=== PATIENT | female | born 1990 | race Caucasian/White ===

== ENCOUNTER 2017-11-25 05:42 | Inpatient (IN) | payer MEDICAID ==
[2017-11-25] MEDS ORDERED: METHYLERGONOVINE 0.2 MG INJ IM ×2 (06:30→08:00)
[2017-11-25] MEDS ORDERED: CEFAZOLIN 2 GM/50 ML (PMX) 50 ML IV (06:30)
[2017-11-25] MEDS ORDERED: OXYTOCIN 30 UNITS/LR 500 ML IV ×2 (06:30)
[2017-11-25] MEDS ORDERED: CARBOPROST 250 MCG INJ IM ×2 (06:30→08:00)
[2017-11-25] MEDS ORDERED: MISOPROSTOL 200 MCG TAB PR ×2 (06:30→08:00)
[2017-11-25] MEDS: LACTATED RINGER'S 1,000 ML IV ×2 (06:34→18:44)
[2017-11-25 06:47] LABS: ADD MAN DIFF? NO
[2017-11-25 06:56] LABS: BASOPHILS % 0.4 % (0.0-2.0); EOSINOPHILS # 0.1 10^3/ul (0.0-0.5); EOSINOPHILS % 1.4 % (0.0-7.0); HEMATOCRIT 36.8 % (37.0-47.0); HEMOGLOBIN 12.6 g/dl (12.0-16.0); LYMPHOCYTES # 2.4 10^3/ul (0.8-2.9); MEAN CORPUSCULAR HEMOGLOBIN 30.1 pg (29.0-33.0); MEAN CORPUSCULAR HGB CONC 34.2 g/dl (32.0-37.0); MEAN PLATELET VOLUME 11.9 fl (7.4-10.4); MONOCYTE # 0.7 10^3/ul (0.3-0.9); MONOCYTES % 6.4 % (0.0-11.0); NEUTROPHIL # 6.8 10^3/ul (1.6-7.5); NEUTROPHILS % 67.3 % (39.0-77.0); PLATELET COUNT 203 10^3/UL (140-415); RED BLOOD COUNT 4.18 10^6/ul (4.20-5.40); RED CELL DISTRIBUTION WIDTH 13.1 % (11.5-14.5)
[2017-11-25 06:56] LABS: WHITE BLOOD COUNT 10.1 10^3/ul (4.8-10.8)
[2017-11-25] MEDS ORDERED: OXYTOCIN 30 UNITS/LR 500 ML BAG IV (07:00)
[2017-11-25] MEDS ORDERED: BUPIVACAINE 0.75%/DEXT (SPINAL) 2 ML INJ ×2 (07:25→07:49)
[2017-11-25] MEDS ORDERED: morphine SULFATE/PF (10 MG/10 ML) INJ (07:25)
[2017-11-25] MEDS ORDERED: OXYTOCIN 10 UNIT INJ (07:26)
[2017-11-25] MEDS ORDERED: METOCLOPRAMIDE 10 MG INJ (07:27)
[2017-11-25] MEDS ORDERED: ONDANSETRON 4 MG INJ (07:27)
[2017-11-25] MEDS ORDERED: FAMOTIDINE 20 MG INJ (07:28)
[2017-11-25] MEDS ORDERED: EPINEPHrine 1 MG INJ (07:29)
[2017-11-25] MEDS: ONDANSETRON 4 MG INJ IV ×2 (07:31→17:43)
[2017-11-25] MEDS: METOCLOPRAMIDE 10 MG INJ IV (07:31)
[2017-11-25] MEDS: FAMOTIDINE 20 MG INJ IV (07:31)
[2017-11-25 07:35] LABS: INR 0.91; PROTIME 12.3 Sec (11.9-14.9)
[2017-11-25 07:51] LABS: HEPATITIS B SURFACE ANTIGEN NEGATIVE (NEGATIVE)
[2017-11-25] MEDS ORDERED: NA PHOSPHATE/BIPHOS 133 ML ENEMA PR (08:00)
[2017-11-25] MEDS: CEFAZOLIN 2 GM/50 ML (PMX) 50 ML IV (08:00)
[2017-11-25] MEDS ORDERED: HYDROCODONE/APAP (5/325) TAB PO (08:00)
[2017-11-25] MEDS ORDERED: KETOROLAC 30 MG INJ IV ×2 (08:00→17:30)
[2017-11-25] MEDS ORDERED: EPHEDrine SULFATE 50 MG/5 ML SYG (08:29)
[2017-11-25] MEDS: OXYTOCIN 30 UNITS/LR 500 ML IV ×2 (09:20→12:27)
[2017-11-25] MEDS: KETOROLAC 30 MG INJ IV ×2 (13:58→21:20)
[2017-11-25] MEDS ORDERED: IBUPROFEN 800 MG TAB PO (14:00)
[2017-11-25 15:31] LABS: RAPID PLASMA REAGIN NONREACTIVE (NR)
[2017-11-25] MEDS ORDERED: DIPHENHYDRAMINE 50 MG INJ IV (17:30)
[2017-11-25] MEDS ORDERED: HYDROmorphONE 0.5 MG/0.5 ML SYG IV ×2 (17:30)
[2017-11-25] MEDS ORDERED: NALOXONE (0.4 MG/ML) INJ IV (17:30)
[2017-11-25] MEDS ORDERED: ZOLPIDEM 5 MG TAB PO (17:30)
[2017-11-25] MEDS: LANOLIN 7 GM TUBE TOP (17:48)
[2017-11-26] MEDS: LACTATED RINGER'S 1,000 ML IV ×3 (00:28→16:30)
[2017-11-26] MEDS: KETOROLAC 30 MG INJ IV ×3 (02:42→14:54)
[2017-11-26 07:03] LABS: ADD MAN DIFF? NO
[2017-11-26 07:18] LABS: BASOPHILS % 0.2 % (0.0-2.0); EOSINOPHILS # 0.1 10^3/ul (0.0-0.5); EOSINOPHILS % 0.8 % (0.0-7.0); HEMATOCRIT 29.1 % (37.0-47.0); HEMOGLOBIN 9.9 g/dl (12.0-16.0); LYMPHOCYTES # 2.5 10^3/ul (0.8-2.9); LYMPHOCYTES % 19.3 % (15.0-51.0); MEAN CORPUSCULAR HEMOGLOBIN 30.5 pg (29.0-33.0); MEAN CORPUSCULAR VOLUME 89.5 fl (82.0-101.0); MEAN PLATELET VOLUME 11.9 fl (7.4-10.4); MONOCYTE # 0.8 10^3/ul (0.3-0.9); NEUTROPHIL # 9.4 10^3/ul (1.6-7.5); NEUTROPHILS % 73.3 % (39.0-77.0); PLATELET COUNT 172 10^3/UL (140-415); RED BLOOD COUNT 3.25 10^6/ul (4.20-5.40); RED CELL DISTRIBUTION WIDTH 13.3 % (11.5-14.5)
[2017-11-26 07:18] LABS: WHITE BLOOD COUNT 12.8 10^3/ul (4.8-10.8)
[2017-11-26] MEDS: HYDROCODONE/APAP (5/325) TAB PO (19:52)
[2017-11-26] MEDS: BISACODYL (EC) 5 MG TAB PO (23:56)
[2017-11-27] MEDS: HYDROCODONE/APAP (5/325) TAB PO ×2 (00:58→12:23)
[2017-11-27] MEDS: IBUPROFEN 800 MG TAB PO ×3 (05:33→21:36)
[2017-11-27 07:22] LABS: ADD MAN DIFF? NO
[2017-11-27 07:36] LABS: WHITE BLOOD COUNT 12.5 10^3/ul (4.8-10.8)
[2017-11-27 07:36] LABS: BASOPHILS % 0.2 % (0.0-2.0); EOSINOPHILS # 0.3 10^3/ul (0.0-0.5); EOSINOPHILS % 2.1 % (0.0-7.0); HEMATOCRIT 32.2 % (37.0-47.0); HEMOGLOBIN 10.9 g/dl (12.0-16.0); LYMPHOCYTES # 2.7 10^3/ul (0.8-2.9); LYMPHOCYTES % 21.4 % (15.0-51.0); MEAN CORPUSCULAR HEMOGLOBIN 30.3 pg (29.0-33.0); MEAN CORPUSCULAR HGB CONC 33.9 g/dl (32.0-37.0); MEAN CORPUSCULAR VOLUME 89.4 fl (82.0-101.0); MEAN PLATELET VOLUME 11.7 fl (7.4-10.4); MONOCYTE # 0.8 10^3/ul (0.3-0.9); MONOCYTES % 6.3 % (0.0-11.0); NEUTROPHIL # 8.7 10^3/ul (1.6-7.5); NEUTROPHILS % 69.7 % (39.0-77.0); PLATELET COUNT 180 10^3/UL (140-415); RED CELL DISTRIBUTION WIDTH 13.5 % (11.5-14.5)
[2017-11-27] MEDS: BISACODYL (EC) 5 MG TAB PO ×2 (20:58→21:00)
[2017-11-28] MEDS: IBUPROFEN 800 MG TAB PO ×2 (05:34→15:06)
[2017-11-28] MEDS ORDERED: SILVER SULFADIAZINE 1% 400 GM CR TOP (13:00)
[2017-11-28] MEDS ORDERED: SILVER SULFADIAZINE 1% 25 GM CR TOP (13:00)
== END 2017-11-28 15:10 | disposition home or self-care (01) | DRG 766 ==
LOC: L-D 05:42 → PP1 12:11
PROVIDERS: Obstetrics & Gynecology
PROC: 10D00Z1 Extraction of Products of Conception, Low, Open Approach (ICD-10-PCS; principal; 2017-11-25 07:30)
DX: O34.211 Maternal care for low transverse scar from previous cesarean delivery (principal); N85.8 Other specified noninflammatory disorders of uterus; Z3A.39 39 weeks gestation of pregnancy; Z37.0 Single live birth
CPT/HCPCS: 85025; 85610; 85730; 86592; 86850; 86900; 86901; 87340; 99464